=== PATIENT | male | born 1960 | race Caucasian/White ===

== ENCOUNTER 2016-09-10 10:17 | Emergency (ER) | payer OTHER ==
[~2016-09-10] VITALS: Ht 434.3 cm; Wt 93.0 kg
[~2016-09-10 10:17] MED LIST: NAPROSYN500 MG PO
[2016-09-10] MEDS ORDERED: IBUPROFEN400 MG PO (12:06)
== END 2016-09-10 11:51 | disposition home or self-care (01) ==
LOC: ED 10:17
DX: S46.911A Strain of unspecified muscle, fascia and tendon at shoulder and upper arm level, right arm, initial encounter (principal); F17.200 Nicotine dependence, unspecified, uncomplicated; X58.XXXA Exposure to other specified factors, initial encounter; Y93.89 Activity, other specified; Y92.89 Other specified places as the place of occurrence of the external cause; Y99.8 Other external cause status

== ENCOUNTER → 2022-08-18 | Outpatient (CLI) | payer OTHER ==
[~2022-08-18] MED LIST changes: +IBUPROFEN400 MG PO
== END | disposition home or self-care (01) ==
LOC: CT 07:50
PROVIDERS: ATTEND Physician Assistant
DX: J44.9 Chronic obstructive pulmonary disease, unspecified (principal); R91.8 Other nonspecific abnormal finding of lung field; F17.210 Nicotine dependence, cigarettes, uncomplicated

== ENCOUNTER → 2022-11-05 | Outpatient (CLI) | payer OTHER | END | disposition home or self-care (01) | LOC: US 00:31 → CARD 07:30 | PROVIDERS: ATTEND Internal Medicine Cardiovascular Disease | DX: I11.9 Hypertensive heart disease without heart failure (principal); I48.91 Unspecified atrial fibrillation ==

== ENCOUNTER → 2024-12-23 | Outpatient (CLI) | payer OTHER ==
[~2024-12-23] MED LIST changes: +ATORVASTATIN CA40 M1 PO; +BUDESONIDE-FO10.2 G1 INH; +DOFETILIDE125 MCG PO; +LISINOPRIL5 MG PO; +METOPROLOL SUCC25 M2 PO; +Ondansetron Hydrochloride 4 MG/2 ML VIAL ONE; +Regadenoson 0.4 MG/5 ML SYR IV ONE; +Technetium Tc 99M Tetrofosmi 0.23 MG KIT IJ SCH; +XARE20MG PO
== END | disposition home or self-care (01) ==
LOC: CARD 02:10
PROVIDERS: ATTEND Internal Medicine Cardiovascular Disease
DX: R00.1 Bradycardia, unspecified (principal); I25.10 Atherosclerotic heart disease of native coronary artery without angina pectoris; R07.89 Other chest pain; I10 Essential (primary) hypertension; E78.00 Pure hypercholesterolemia, unspecified